=== PATIENT | female | born 2000 | race African-American/Black ===

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

== ENCOUNTER 2021-06-07 19:42 | Emergency (ER) | payer SELFPAY ==
[~2021-06-07] VITALS: Ht 162.6 cm; Wt 66.0 kg
[2021-06-07 19:54] VITALS: BP 117/49
[2021-06-07] MEDS ORDERED: PENICILLIN G BENZATHINE 1,200,000 UNITS/2ML SYR IM ONE (22:30)
== END 2021-06-07 23:00 | disposition home or self-care (01) ==
LOC: ER 19:42
DX: J02.9 Acute pharyngitis, unspecified (principal); F12.10 Cannabis abuse, uncomplicated
CPT/HCPCS: 96372; 99283; J0561

== ENCOUNTER 2021-10-07 03:56 | Emergency (ER) | payer MEDICAID ==
[~2021-10-07] VITALS: Ht 162.6 cm; Wt 59.9 kg
[2021-10-07 04:42] VITALS: BP 116/66
[2021-10-07 05:32] LABS: HEMATOCRIT. 37.7 % (36.0-48.0); HEMOGLOBIN. 12.2 g/dL (12.0-16.0); MEAN CORPUSCULAR HEMOGLOBIN 31.6 pg (28.0-32.0); MEAN CORPUSCULAR VOLUME 97.8 fL (81.0-99.0); MEAN PLATELET VOLUME 7.8 fl (7.4-10.4); PLATELET 286 x1000/uL (130-400); RED BLOOD CELL COUNT 3.86 mill/uL (4.2-5.4); RED CELL DISTRIBUTION WIDTH 13.2 % (11.6-14.6)
[2021-10-07 05:51] LABS: CLARITY URINE CLOUDY (CLEAR); COLOR URINE YELLOW (YELLOW); KETONES URINE 1+ (NEGATIVE); LEUKOCYTE ESTERASE URINE 2+ (NEGATIVE); NITRITE URINE POSITIVE (NEGATIVE); OCCULT BLOOD URINE NEGATIVE (NEGATIVE); PROTEIN URINE NEGATIVE (NEGATIVE); SPECIFIC GRAVITY URINE 1.016 (1.005-1.030)
[2021-10-07 06:05] LABS: CHLORIDE 104 mEq/L (98-107)
[2021-10-07 06:06] LABS: HCG SCREEN NEGATIVE
[2021-10-07 06:11] LABS: ETHANOL BLOOD < 10 mg/dL
[2021-10-07 06:13] LABS: *AMPHETAMINES SCREEN URINE NEGATIVE (NEGATIVE); *BARBITURATES SCREEN URINE NEGATIVE (NEGATIVE); *BENZODIAZEPINES SCREEN URINE NEGATIVE (NEGATIVE); *COCAINE SCREEN URINE NEGATIVE (NEGATIVE)
[2021-10-07 06:14] LABS: METHADONE URINE SCREEN NEGATIVE (NEGATIVE); PHENCYCLIDINE URINE SCREEN NEGATIVE (NEGATIVE)
[2021-10-07 06:27] LABS: CANNABINOID URINE SCREEN PRESUMTIVE POSITIVE (NEGATIVE); OPIATES URINE SCREEN PRESUMTIVE POSITIVE (NEGATIVE)
[2021-10-07 07:03] LABS: PLATELET ESTIMATE NORMAL
[2021-10-07] MEDS ORDERED: ARIPIPRAZOLE 5MG TABLET PO SCH (09:00)
[2021-10-07] MEDS ORDERED: NITR-87 MT (09:14)
== END 2021-10-07 09:34 | disposition home or self-care (01) ==
LOC: ER 03:56
DX: F31.9 Bipolar disorder, unspecified (principal); N39.0 Urinary tract infection, site not specified
CPT/HCPCS: 36415; 80053; 80305; 80307; 80320; 80329; 81003; 84703; 85025; 99283; G0480

== ENCOUNTER 2021-10-09 08:40 | Emergency (ER) | payer MEDICAID ==
[~2021-10-09] VITALS: Ht 162.6 cm; Wt 61.0 kg
[~2021-10-09 08:40] MED LIST: NITR-87 MT
[2021-10-09] MEDS ORDERED: LIDOCAINE HCL/EPINEPHRINE 1%-EPI 1:100,000 20 ML VIAL INFIL ONE (09:30)
[2021-10-09] MEDS ORDERED: VISCOUS LIDOCAINE 2% 15 ML UDC PO ONE (09:30)
[2021-10-09] MEDS ORDERED: KETOROLAC 60MG/2ML VIAL IM ONE (09:30)
[2021-10-09] MEDS ORDERED: DEXAMETHASONE 10 MG/ML VIAL IM ONE (09:30)
[2021-10-09] MEDS: CEFTRIAXONE SODIUM 1 G/VIAL IM ONE ×2 (09:50→10:10)
[2021-10-09] MEDS ORDERED: IBUP-2028 MT (10:01)
[2021-10-09] MEDS ORDERED: AMOX-424 MT (10:01)
[2021-10-09 10:10] VITALS: BP 112/75
== END 2021-10-09 10:16 | disposition home or self-care (01) ==
LOC: ER 08:57
DX: J36 Peritonsillar abscess (principal); F31.9 Bipolar disorder, unspecified; F12.10 Cannabis abuse, uncomplicated
CPT/HCPCS: 96372; 99284; J0696; J1100; Z7610; J3490

== ENCOUNTER 2022-02-09 09:44 | Emergency (ER) | payer MEDICAID ==
[~2022-02-09] VITALS: Ht 167.6 cm; Wt 69.0 kg
[~2022-02-09 09:44] MED LIST changes: +AMOX-424 MT; +IBUP-2028 MT
[2022-02-09 10:29] LABS: BASOPHILS % 0.2 % (0.0-2.0); HEMATOCRIT. 34.9 % (36.0-48.0); HEMOGLOBIN. 11.8 g/dL (12.0-16.0); LYMPHOCYTES % 11.5 % (20.0-50.0); MEAN CORPUSCULAR HEMOGLOBIN 33.1 pg (28.0-32.0); MEAN CORPUSCULAR VOLUME 98.2 fL (81.0-99.0); MEAN PLATELET VOLUME 7.6 fl (7.4-10.4); MONOCYTES % 12.6 % (2.0-8.0); NEUTROPHILS % 75.7 % (40.0-76.0); PLATELET 291 x1000/uL (130-400); RED BLOOD CELL COUNT 3.56 mill/uL (4.2-5.4); RED CELL DISTRIBUTION WIDTH 12.7 % (11.6-14.6)
[2022-02-09 10:35] LABS: CHLORIDE 104 mEq/L (98-107)
[2022-02-09 10:36] LABS: HCG SCREEN NEGATIVE
[2022-02-09 10:41] LABS: ETHANOL BLOOD < 10 mg/dL
[2022-02-09] MEDS ORDERED: LORAZEPAM 2MG/ML CPJ IM STA (10:41)
[2022-02-09] MEDS ORDERED: OLANZAPINE 10 MG/VIAL IM ONE (10:45)
[2022-02-09 11:50] LABS: CLARITY URINE CLEAR (CLEAR); COLOR URINE YELLOW (YELLOW); KETONES URINE TRACE (NEGATIVE); LEUKOCYTE ESTERASE URINE TRACE (NEGATIVE); NITRITE URINE NEGATIVE (NEGATIVE); OCCULT BLOOD URINE NEGATIVE (NEGATIVE); PROTEIN URINE NEGATIVE (NEGATIVE); SPECIFIC GRAVITY URINE 1.023 (1.005-1.030); UROBILINOGEN URINE 0.2 E.U./dL (0.2-1.0)
[2022-02-09 12:07] LABS: *BARBITURATES SCREEN URINE NEGATIVE (NEGATIVE); *BENZODIAZEPINES SCREEN URINE NEGATIVE (NEGATIVE); *COCAINE SCREEN URINE NEGATIVE (NEGATIVE); METHADONE URINE SCREEN NEGATIVE (NEGATIVE); OPIATES URINE SCREEN NEGATIVE (NEGATIVE); PHENCYCLIDINE URINE SCREEN NEGATIVE (NEGATIVE)
[2022-02-09 12:08] LABS: *AMPHETAMINES SCREEN URINE PRESUMTIVE POSITIVE (NEGATIVE); CANNABINOID URINE SCREEN PRESUMTIVE POSITIVE (NEGATIVE)
[2022-02-09 13:15] VITALS: BP 124/77
== END 2022-02-09 13:31 | disposition home or self-care (01) ==
LOC: ER 10:03
DX: F15.10 Other stimulant abuse, uncomplicated (principal); F16.10 Hallucinogen abuse, uncomplicated; F31.9 Bipolar disorder, unspecified; F12.10 Cannabis abuse, uncomplicated
CPT/HCPCS: 36415; 80053; 80305; 80320; 81003; 82962; 84703; 85025; 99284; J2060; J3490; G0480

== ENCOUNTER 2022-02-10 13:03 | Emergency (ER) | payer MEDICAID ==
[~2022-02-10] VITALS: Ht 165.1 cm; Wt 61.0 kg
[2022-02-10 15:22] LABS: HEMATOCRIT. 34.3 % (36.0-48.0); HEMOGLOBIN. 11.6 g/dL (12.0-16.0); MEAN CORPUSCULAR HEMOGLOBIN 32.8 pg (28.0-32.0); MEAN CORPUSCULAR VOLUME 96.8 fL (81.0-99.0); MEAN PLATELET VOLUME 7.6 fl (7.4-10.4); PLATELET 287 x1000/uL (130-400); RED BLOOD CELL COUNT 3.54 mill/uL (4.2-5.4); RED CELL DISTRIBUTION WIDTH 12.7 % (11.6-14.6)
[2022-02-10 15:23] LABS: CHLORIDE 106 mEq/L (98-107); HCG SCREEN NEGATIVE
[2022-02-10 15:30] LABS: ETHANOL BLOOD < 10 mg/dL
[2022-02-10 16:15] LABS: CLARITY URINE CLEAR (CLEAR); COLOR URINE YELLOW (YELLOW); KETONES URINE 2+ (NEGATIVE); LEUKOCYTE ESTERASE URINE 2+ (NEGATIVE); NITRITE URINE NEGATIVE (NEGATIVE); OCCULT BLOOD URINE NEGATIVE (NEGATIVE); PROTEIN URINE NEGATIVE (NEGATIVE); SPECIFIC GRAVITY URINE 1.025 (1.005-1.030)
[2022-02-10] MEDS ORDERED: HALOPERIDOL LACTATE 5MG/ML VIAL IM ONE (16:15)
[2022-02-10 16:45] LABS: *BARBITURATES SCREEN URINE NEGATIVE (NEGATIVE); *BENZODIAZEPINES SCREEN URINE NEGATIVE (NEGATIVE); *COCAINE SCREEN URINE NEGATIVE (NEGATIVE); METHADONE URINE SCREEN NEGATIVE (NEGATIVE); OPIATES URINE SCREEN NEGATIVE (NEGATIVE); PHENCYCLIDINE URINE SCREEN NEGATIVE (NEGATIVE)
[2022-02-10 16:54] LABS: *AMPHETAMINES SCREEN URINE PRESUMTIVE POSITIVE (NEGATIVE); CANNABINOID URINE SCREEN PRESUMTIVE POSITIVE (NEGATIVE)
[2022-02-10 17:37] LABS: PLATELET ESTIMATE NORMAL
[2022-02-11] MEDS: CEPHALEXIN 250MG CAPSULE PO SCH ×4 (06:46→18:36)
[2022-02-12] MEDS: CEPHALEXIN 250MG CAPSULE PO SCH ×3 (00:47→12:18)
[2022-02-12 14:00] VITALS: BP 110/72
== END 2022-02-12 14:55 | disposition home or self-care (01) ==
LOC: ER 13:03
DX: R46.2 Strange and inexplicable behavior (principal); N39.0 Urinary tract infection, site not specified; R51.9 Headache, unspecified; Z20.822 Contact with and (suspected) exposure to COVID-19
CPT/HCPCS: 36415; 70450; 80053; 80305; 80320; 81003; 84703; 85025; 96372; 99285; C9803; J1630; U0003; U0005; G0480